=== PATIENT | male | born 1970 | race Caucasian/White ===

== ENCOUNTER 2018-12-19 04:45 | Inpatient (IN) | payer OTHER ==
[2018-12-19] MEDS ORDERED: NACL 0.9% 3 ML SYG IV (06:00)
[2018-12-19] MEDS ORDERED: ONDANSETRON 4 MG INJ IV (06:00)
[2018-12-19] MEDS: SOD CHLORIDE 0.9% 1,000 ML IV ×3 (06:13→17:24)
[2018-12-19] MEDS: ACETAMINOPHEN 325 MG TAB PO ×2 (06:14→15:39)
[2018-12-19 06:20] LABS: ADD MAN DIFF? NO
[2018-12-19 06:29] LABS: BASOPHIL # 0.1 10^3/ul (0.0-0.1); BASOPHILS % 0.9 % (0.0-2.0); EOSINOPHILS # 0.1 10^3/ul (0.0-0.5); EOSINOPHILS % 1.4 % (0.0-7.0); HEMATOCRIT 35.2 % (42.0-52.0); HEMOGLOBIN 12.3 g/dl (14.0-18.0); LYMPHOCYTES # 3.2 10^3/ul (0.8-2.9); LYMPHOCYTES % 35.2 % (15.0-51.0); MEAN CORPUSCULAR HEMOGLOBIN 31.5 pg (29.0-33.0); MEAN CORPUSCULAR HGB CONC 34.9 g/dl (32.0-37.0); MEAN PLATELET VOLUME 10.8 fl (7.4-10.4); MONOCYTE # 0.6 10^3/ul (0.3-0.9); MONOCYTES % 7.1 % (0.0-11.0); NEUTROPHILS % 54.6 % (39.0-77.0); PLATELET COUNT 208 10^3/UL (140-415); RED BLOOD COUNT 3.91 10^6/ul (4.70-6.10); RED CELL DISTRIBUTION WIDTH 12.6 % (11.5-14.5)
[2018-12-19 06:29] LABS: WHITE BLOOD COUNT 9.1 10^3/ul (4.8-10.8)
[2018-12-19 06:53] LABS: ALANINE AMINOTRANSFERASE 34 IU/L (13-69); ALBUMIN 3.8 g/dl (3.3-4.9); ALBUMIN/GLOBULIN RATIO 1.08; ALKALINE PHOSPHATASE 50 IU/L (42-121); ANION GAP 12 (5-13); ASPARTATE AMINO TRANSFERASE 26 IU/L (15-46); BILIRUBIN,INDIRECT 0.8 mg/dl (0-1.1); BILIRUBIN,TOTAL 0.8 mg/dl (0.2-1.3); BLOOD UREA NITROGEN 41 mg/dl (7-20); CALCIUM 8.6 mg/dl (8.4-10.2); CARBON DIOXIDE 25 mmol/L (21-31); CHLORIDE 104 mmol/L (97-110); CHOL/HDL RATIO 5.2 RATIO; CHOLESTEROL 131 mg/dl (100-200); Estimated GFR 38 mL/min (>60); GLUCOSE 125 mg/dl (70-220); LDL CHOLESTEROL,CALCULATED 77 mg/dl; MAGNESIUM 1.5 mg/dl (1.7-2.5); POTASSIUM 4.2 mmol/L (3.5-5.1); SODIUM 141 mmol/L (135-144); TOTAL PROTEIN 7.3 g/dl (6.1-8.1); TRIGLYCERIDES 146 mg/dl (0-149)
[2018-12-19 07:16] LABS: HDL CHOLESTEROL 25 mg/dl (27-67)
[2018-12-19 07:28] LABS: PHOSPHORUS 4.9 mg/dl (2.5-4.9)
[2018-12-19 08:07] LABS: CREATINE KINASE 275 IU/L (23-200)
[2018-12-19] MEDS: HEPARIN 5,000 UNIT/1 ML VIAL SC ×2 (09:01→20:38)
[2018-12-19] MEDS ORDERED: GLUCAGON 1 MG INJ IM (10:00)
[2018-12-19] MEDS ORDERED: GLUCOSE GEL 15 GRAM TUBE BUCCAL (10:00)
[2018-12-19] MEDS ORDERED: DEXTROSE 50% 50 ML SYRINGE IV ×2 (10:00)
[2018-12-19] MEDS ORDERED: HYDROCODONE/APAP (5/325) TAB PO (10:00)
[2018-12-19] MEDS ORDERED: GLUCOSE GEL 15 GRAM TUBE PO ×2 (10:00)
[2018-12-19] MEDS ORDERED: hydrALAzine 20 MG INJ IV (10:00)
[2018-12-19 10:07] LABS: HEMOGLOBIN A1C 7.8 % (0-5.9)
[2018-12-19] MEDS: MAGNESIUM SULFATE 2 GM/50 ML 50 ML IVPB (11:24)
[2018-12-19] MEDS: INSULIN ASPART [NOVOLOG] 3 ML PEN SC ×5 (12:40→20:39)
[2018-12-19 16:35] LABS: BARBITURATES Negative (NEGATIVE); BENZODIAZEPINES Negative (NEGATIVE); CANNABINOIDS Negative (NEGATIVE); COCAINE Negative (NEGATIVE); OPIATES Negative (NEGATIVE)
[2018-12-19 16:37] LABS: AMPHETAMINE/METHAMPHETAMINE POSITIVE (NEGATIVE)
[2018-12-19 16:38] LABS: POTASSIUM,URINE RANDOM 41.4 mmol/L (25-125)
[2018-12-19 16:38] LABS: SODIUM,URINE RANDOM 84 mmol/L (30-90)
[2018-12-19] MEDS: oxyCODONE (CR) 20 MG TAB [oxyCONTIN] PO (20:36)
[2018-12-20] MEDS: SOD CHLORIDE 0.9% 1,000 ML IV (01:33)
[2018-12-20] MEDS: ACCUCHECK AT 2AM (Patients on SS coverage) XX (02:51)
[2018-12-20 05:12] LABS: ADD MAN DIFF? NO
[2018-12-20 05:19] LABS: BASOPHIL # 0.1 10^3/ul (0.0-0.1); BASOPHILS % 1.1 % (0.0-2.0); EOSINOPHILS # 0.2 10^3/ul (0.0-0.5); EOSINOPHILS % 3.6 % (0.0-7.0); HEMATOCRIT 33.4 % (42.0-52.0); HEMOGLOBIN 11.5 g/dl (14.0-18.0); LYMPHOCYTES # 3.3 10^3/ul (0.8-2.9); MEAN CORPUSCULAR HGB CONC 34.4 g/dl (32.0-37.0); MEAN PLATELET VOLUME 11.8 fl (7.4-10.4); MONOCYTE # 0.5 10^3/ul (0.3-0.9); MONOCYTES % 7.4 % (0.0-11.0); NEUTROPHILS % 33.4 % (39.0-77.0); PLATELET COUNT 197 10^3/UL (140-415); RED BLOOD COUNT 3.71 10^6/ul (4.70-6.10); RED CELL DISTRIBUTION WIDTH 12.5 % (11.5-14.5)
[2018-12-20 05:19] LABS: WHITE BLOOD COUNT 6.1 10^3/ul (4.8-10.8)
[2018-12-20 05:58] LABS: ANION GAP 6 (5-13); BLOOD UREA NITROGEN 17 mg/dl (7-20); CALCIUM 8.4 mg/dl (8.4-10.2); CARBON DIOXIDE 26 mmol/L (21-31); CHLORIDE 108 mmol/L (97-110); CREATININE 0.85 mg/dl (0.61-1.24); Estimated GFR > 60 mL/min (>60); GLUCOSE 177 mg/dl (70-220); MAGNESIUM 1.7 mg/dl (1.7-2.5); PHOSPHORUS 2.9 mg/dl (2.5-4.9); POTASSIUM 4.5 mmol/L (3.5-5.1); SODIUM 140 mmol/L (135-144)
[2018-12-20] MEDS: oxyCODONE (CR) 20 MG TAB [oxyCONTIN] PO (08:10)
[2018-12-20] MEDS: HEPARIN 5,000 UNIT/1 ML VIAL SC (08:15)
[2018-12-20] MEDS: INSULIN ASPART [NOVOLOG] 3 ML PEN SC ×4 (08:16→12:40)
== END 2018-12-20 14:44 | disposition home or self-care (01) | DRG 684 ==
LOC: MS1 04:45
PROVIDERS: Internal Medicine
DX: N17.9 Acute kidney failure, unspecified (principal); E11.9 Type 2 diabetes mellitus without complications; I10 Essential (primary) hypertension; E78.5 Hyperlipidemia, unspecified; R10.9 Unspecified abdominal pain; E66.9 Obesity, unspecified; M54.9 Dorsalgia, unspecified; G89.29 Other chronic pain; Z68.31 Body mass index [BMI] 31.0-31.9, adult
CPT/HCPCS: 74176; 76775; 80048; 80053; 80061; 80307; 82436; 82550; 82962; 83036; 83735; 84100; 84133; 84300; 85025